=== PATIENT | male | born 1965 | race Caucasian/White ===

== ENCOUNTER 2016-12-11 15:27 | Emergency (ER) | payer BC ==
[2016-12-11 15:41] VITALS: BP 141/93
[2016-12-11] MEDS ORDERED: Albuterol 0.083% 2.5 MG/3 ML Neb Soln NEB ONE (15:59)
--- NOTE | 2016-12-11 16:40 | EDM.PDOC ---
ED HPI GI/ABDOMINAL - General Chief Complaint: Abdominal Pain Stated Complaint: UPPER ABDOMINAL PAIN Time Seen by Provider: 12/11/16 15:49 Source of Information: Reports: Patient History Limitations: Reports: No limitations - History of Present Illness INITIAL COMMENTS - FREE TEXT/NARRATIVE: The patient presents with right upper quadrant pain and right lower chest pain. This started about 1 week ago. It hurts to take a deep breath. It normally does not hurt until he is taking a deep breath. He has no shortness of breath with it. Food does not affect it. He has no fever or chills. He does have a slight posterior headache. He has no nausea or vomiting. He has no edema in his legs or pain in his legs. He had a chest cold about 3 weeks ago that went away last week. He has no history of heart disease. He has no history of DVT or PE. He went to see Belle Dumont in our clinic and she did some labs and an x- ray. She gave him some magnesium citrate to clean him out and he did go but he does not feel any better. He went to the clinic but they could not fit her in so they sent him over here. Timing/Duration: Reports: Week(s): (1) Location: [facility] Quality: Reports: other (sharp) Severity: moderate (when taking a deep breath only) Worsens with: Reports: other (taking a deep breath) Context: Denies: sick contact, bad/questionable food, out of country travel, recent surgery, recent trauma, lifting, activity/exercise Associated Symptoms: Reports: chest pain. Denies: groin pain, diarrhea, fever/ chills, loss of appetite, nausea/vomiting - Related Data Allergies/ADRs: Allergies Allergy/AdvReac Type Severity Reaction Status Date / Time venom-honey bee Allergy Swelling Verified 12/11/16 15:40 [bee venom (honey bee)] Home Meds: Home Meds . [No Known Home Meds] 12/11/16 [History] Past Medical History - Past Surgical History Musculoskeletal Surgical History: Reports: Other (see below) Other Musculoskeletal Surgeries/Procedures:: knee surgery Social & Family History - Tobacco Use Smoking Status *Q: Never Smoker Second Hand Smoke Exposure: No - Caffeine Use Caffeine Use: Reports: None - Recreational Drug Use Recreational Drug Use: No ED ROS GENERAL - Review of Systems Review Of Systems: See Below Constitutional: Reports: no symptoms HEENT: Reports: No symptoms Respiratory: Reports: No Symptoms Cardiovascular: Reports: Chest pain Endocrine: Reports: no symptoms GI/Abdominal: Reports: Abdominal pain (RUQ) : Reports: no symptoms Musculoskeletal: Reports: no symptoms Skin: Reports: no symptoms Neurological: Reports: No Symptoms ED EXAM, GI/ABD - Physical Exam Exam: See Below Exam Limited By: No limitations General Appearance: alert, no apparent distress Ears: normal external exam Nose: normal inspection Throat/Mouth: Normal inspection Head: atraumatic, normocephalic Neck: normal inspection Respiratory/Chest: no respiratory distress, wheezing (mild) Cardiovascular: regular rate, rhythm, no edema, no murmur GI/Abdominal: soft, non tender, no organomegaly Back Exam: normal inspection Extremities: normal inspection, other (Ecchymosis to both hips) Neurological: alert, oriented, no motor/sensory deficits EKG INTERPRETATION EKG Date: 12/11/16 Time: 16:10 Rhythm: NSR Rate (beats/min): 84 [place]: normal P-wave: present QRS: normal ST-T: normal QT: normal Course - Vital Signs Last Recorded V/S: Last Vital Signs Temp 98.6 F 12/11/16 15:36 Pulse 90 12/11/16 15:36 Resp 16 12/11/16 15:36 BP 141/93 H 12/11/16 15:36 Pulse Ox 98 12/11/16 16:09 - Orders/Labs/Meds Orders: Active Orders 24 hr Category Date Time Status Cardiac Monitoring [RC] . DIRECTED Care 12/11/16 15:58 Active EKG Documentation Completion [RC] STAT Care 12/11/16 15:58 Active RT Aerosol Therapy [RC] ASDIRECTED Care 12/11/16 15:59 Active Chest 2V [CR] Stat Exams 12/11/16 15:59 Taken Labs: Laboratory Tests 12/11/16 12/11/16 12/11/16 Range/Units 16:32 16:32 16:32 WBC 10.13 H (4.23-9.07) K/mm3 RBC 5.42 (4.63-6.08) M/mm3 Hgb 16.6 (13.7-17.5) gm/L Hct 48.2 (40.1-51.0) % MCV 88.9 (79.0-92.2) fl MCH 30.6 (25.7-32.2) pg MCHC 34.4 (32.2-35.5) g/dl RDW Std Deviation 40.3 (35.1-43.9) fL Plt Count 186 (163-337) K/mm3 MPV 10.7 (9.4-12.3) fl Neut % (Auto) 51.8 (34.0-67.9) % Lymph % (Auto) 38.1 (21.8-53.1) % [place] % (Auto) 8.8 (5.3-12.2) % Eos % (Auto) 0.8 (0.8-7.0) Baso % (Auto) 0.4 (0.1-1.2) % Neut # (Auto) 5.25 (1.78-5.38) K/mm3 Lymph # (Auto) 3.86 H (1.32-3.57) K/mm3 [place] # (Auto) 0.89 H (0.30-0.82) K/mm3 Eos # (Auto) 0.08 (0.04-0.54) K/mm3 Baso # (Auto) 0.04 (0.01-0.08) K/mm3 D-Dimer, Quantitative 0.29 (0.19-0.59) mg/L Sodium 142 (136-145) mEq/L Potassium 3.9 (3.5-5.1) mEq/L Chloride 105 (98-107) mEq/L Carbon Dioxide 29 (21-32) mEq/L Anion Gap 11.9 (5-15) BUN 16 (7-18) mg/dL Creatinine 1.0 (0.7-1.3) mg/dL Est Cr Clr Drug Dosing 82.63 mL/min Estimated GFR (MDRD) > 60 (>60) mL/min BUN/Creatinine Ratio 16.0 (14-18) Glucose 111 H (74-106) mg/dL Calcium 9.0 (8.5-10.1) mg/dL Total Bilirubin 0.9 (0.2-1.0) mg/dL AST 21 (15-37) U/L ALT 45 (16-63) U/L Alkaline Phosphatase 67 (46-116) U/L Troponin I < 0.017 (0.00-0.056) ng/mL Total Protein 7.8 (6.4-8.2) g/dl Albumin 4.1 (3.4-5.0) g/dl Globulin 3.7 gm/dL Albumin/Globulin Ratio 1.1 (1-2) Meds: Medications Discontinued Medications Generic Name Dose Route Start Last Admin Trade Name Justin PRN Reason Stop Dose Admin Albuterol 2.5 mg 12/11/16 15:59 12/11/16 16:07 Proventil Neb Soln NEB 12/11/16 16:00 2.5 mg ONETIME ONE Administration - Re-Assessments/Exams Free Text/Narrative Re-Assessment/Exam: 12/11/16 16:40 I ordered an EKG, CXR and labs. His EKG shows a NSR with nothing acute. His CXR looks good. 12/11/16 17:39 His WBC is slightly elevated at 10.13. His D-dimer was negative along with his troponin. His CMP was negative. I feel this is pleurisy. I will discharge him home on some antiinflammatories. Departure - Departure Time of Disposition: 17:40 Disposition: Home, Self-Care 01 Condition: good Clinical Impression: Pleurisy Referrals: Belle Moore PA [Physician [employer] Operator] - 1 Week (If you are not better) Forms: ED Department Discharge Additional Instructions: Take motrin or aleve for pain. Please return if you are worse. - My Orders Last 24 Hours: My Active Orders 12/11/16 15:58 Cardiac Monitoring [RC] . DIRECTED EKG Documentation Completion [RC] STAT 12/11/16 15:59 RT Aerosol Therapy [RC] ASDIRECTED Chest 2V [CR] Stat - Assessment/Plan Last 24 Hours: My Active Orders 12/11/16 15:58 Cardiac Monitoring [RC] . DIRECTED EKG Documentation Completion [RC] STAT 12/11/16 15:59 RT Aerosol Therapy [RC] ASDIRECTED Chest 2V [CR] Stat
--- NOTE | 2016-12-13 16:18 | CR ---
Chest: Two views of the chest were obtained. Comparison: No previous study. Heart size and mediastinum are normal. Lungs are clear. Bony structures are unremarkable. Impression: 1. Nothing acute is identified on two-view chest x-ray. Diagnostic code #1
== END 2016-12-11 17:49 | disposition home or self-care (01) ==
LOC: JD.ED 15:27
DX: R09.1 Pleurisy (principal); S70.02XA Contusion of left hip, initial encounter; S70.01XA Contusion of right hip, initial encounter; Z91.030 Bee allergy status; Z98.890 Other specified postprocedural states; X58.XXXA Exposure to other specified factors, initial encounter
CPT/HCPCS: 36415; 71020; 71020-26; 80053; 84484; 85025; 85379; 93005; 99284; 99284-25

== ENCOUNTER 2019-01-25 07:08 | Day surgery (SDC) | payer BC ==
[~2019-01-25 07:08] MED LIST: Lactated Ringers 1,000 ML IV SCH; Lidocaine 1%/Sod Bicarbonate in NS 8.4% 1 ML Syringe IDERM PRN; Sodium Chloride 0.9% 10 ML Syringe FLUSH PRN
[2019-01-25] MEDS ORDERED: Propofol 200 MG/20 ML SDV ONE ×2 (07:17→08:02)
[2019-01-25 08:44] VITALS: BP 106/82
--- NOTE | 2019-01-25 14:23 | OR ---
DATE OF OPERATION: 01/25/2019 SURGEON: Rey Liu MD PREOPERATIVE DIAGNOSIS: Colorectal cancer screening. POSTOPERATIVE DIAGNOSIS: 1. Colorectal cancer screening. 2. Diverticulosis. 3. Colon polyp. OPERATION PERFORMED: Screening colonoscopy and cold polypectomy x1. FINDINGS: He had a diminutive polyp in the sigmoid colon, which was easily removed with a single bite of a biopsy forceps. This mucosa appeared marginally abnormal at best, so I am not sure it is actually a polyp, may be a pseudopolyp. He also had some scattered diverticulosis concentrated in the sigmoid colon. The remainder of his exam was completely unremarkable. He had an excellent bowel prep. PATHOLOGY: Sigmoid colon polyp. COMPLICATIONS: None. ESTIMATED BLOOD LOSS: Minimal. ANESTHESIA: MAC. DISPOSITION: Stable at the end of the procedure. INDICATION: The patient is a 53-year-old male who never had a colonoscopy. He presented to my office for screening. The patient was offered screening colonoscopy per the standard of care. He was fully informed of the major risks, benefits, and alternatives. The risks include, but are not limited to perforation of the colon, bleeding, risks of anesthesia, and the possibility of further surgery. He gave informed consent. DESCRIPTION OF PROCEDURE: The patient was brought to the gastro suite and placed in the left lateral decubitus position. A digital rectal exam was performed. He was given monitored anesthesia. His digital rectal exam was unremarkable. I introduced the colonoscope into the rectum. I advanced the scope with copious lubrication with gentle forward pressure keeping the lumen in view at all times. I documented the cecum photographically. I slowly investigated the mucosa of the colon from the cecum back to the anus in an exam lasting 9 minutes. I identified a single polyp in the sigmoid colon. He had some sigmoid diverticulosis. The polyp was removed in its entirety with the cold biopsy forceps. As the exam was completed at 9 minutes, the scope was withdrawn. He was awakened from anesthesia and moved to recovery in stable condition. PLAN: If the pathology returns normal or hyperplastic, 10-year followup is warranted. If the polyp turns out to be an adenoma, then he will need a 5-year followup. My office will notify to that regard. MMODAL /[id number]
== END 2019-01-25 09:03 | disposition home or self-care (01) ==
LOC: JD.SDS 07:08
PROVIDERS: ATTEND Surgery
DX: Z12.11 Encounter for screening for malignant neoplasm of colon (principal); K63.5 Polyp of colon; K57.30 Diverticulosis of large intestine without perforation or abscess without bleeding; Z91.030 Bee allergy status
CPT/HCPCS: 00812; J2704; J7120

== ENCOUNTER 2021-03-29 22:17 | Emergency (ER) | payer BC ==
[2021-03-29 22:33] VITALS: BP 136/96; PULSE 73
[2021-03-29] MEDS ORDERED: Proparacaine 0.5% Ophth Soln 15 ML Bottle EYELF STA (23:03)
[2021-03-29] MEDS ORDERED: Fluorescein 1 MG Ophth Strip EYELF STA (23:03)
[2021-03-29] MEDS ORDERED: Erythromycin Base 0.5% Ophth Oint 1 GM Tube EYELF STA (23:19)
--- NOTE | 2021-03-29 23:25 | EDM.PDOC ---
ED HPI GENERAL MEDICAL PROBLEM - General Chief Complaint: Eye Problems Stated Complaint: FOB IN LEFT EYE Time Seen by Provider: 03/29/21 22:42 Source of Information: Reports: Patient, Family ( + daughter) History Limitations: Reports: No Limitations - History of Present Illness INITIAL COMMENTS - FREE TEXT/NARRATIVE: Mr. Mejia is a very pleasant 55-year-old gentleman who now presents the ED stating that he developed a foreign body sensation in his left eye around 21:00 tonight, after he brushed his hand through his hair while lying in bed. He tried flushing it with water in the shower, then under the kitchen sink, as well as with saline solution, but the foreign body sensation persists. He denies visual changes. No prior left eye injury. Here in the ED, the patient's initial BP is found to be slightly elevated at 136/96, otherwise, he is hemodynamically stable, afebrile, saturating 96% on room air. He appears to be slightly uncomfortable, but in no acute distress. Prior to 21:00 tonight, the patient denies having a recent fever, chills, sore throat, ear pain, nasal or sinus congestion, cough, dyspnea, chest pain, palpitations, nausea, vomiting, constipation, diarrhea, abdominal pain, urinary symptoms, recent weight gain or weight loss, recent bloody bowel movements or black bowel movements, recent joint aches, headaches, or rashes. I reviewed the PMHx/PSHx/SocHx, which was reviewed with the patient by the RN. The patient's PCP is Dr. Arnold Chavez. - Related Data Allergies Allergy/AdvReac Type Severity Reaction Status Date / Time venom-honey bee Allergy Severe Swelling Verified 03/29/21 22:33 [bee venom (honey bee)] Home Meds: Home Meds Losartan Potassium 25 mg PO DAILY 03/29/21 [History] Past Medical History HEENT History: Reports: None Cardiovascular History: Reports: Hypertension Other Cardiovascular History: chest pain Respiratory History: Reports: Other (See Below) Other Respiratory History: cough Gastrointestinal History: Reports: Other (See Below) Other Gastrointestinal History: RUQ pain Genitourinary History: Reports: None SIENE MAKER History: Reports: None Neurological History: Reports: None Psychiatric History: Reports: None Endocrine/Metabolic History: Reports: Obesity/BMI 30+ Hematologic History: Reports: None Immunologic History: Reports: None Oncologic (Cancer) History: Reports: None Dermatologic History: Reports: None - Infectious Disease History Infectious Disease History: Reports: MRSA - Past Surgical History Musculoskeletal Surgical History: Reports: Other (See Below) Other Musculoskeletal Surgeries/Procedures:: Knee Surgery Social & Family History - Tobacco Use Tobacco Use Status *Q: Never Tobacco User - Caffeine Use Caffeine Use: Reports: Coffee - Recreational Drug Use Recreational Drug Use: No ED ROS GENERAL - Review of Systems Review Of Systems: Comprehensive ROS is negative, except as noted in HPI. ED EXAM GENERAL W FULL EYE - Physical Exam Exam: See Below Exam Limited By: No Limitations General Appearance: Alert Eyelids: Bilateral: Normal Appearance Conjunctiva & Sclera: Right: Normal Appearance, Left: Injected Cornea Exam: Left: Corneal Abrasion (punctate, central cornea, seen with slit lamp only), Examined with Flourescein Extraocular Movements: Bilateral: Intact Pupils: Normal Accommodation Pupillary Size: Bilateral: 5 mm Pupillary Reaction: Bilateral: Brisk Anterior Chamber: Bilateral: Normal Appearance Course - Vital Signs Last Recorded V/S: Last Vital Signs Temp 35.9 C L 03/29/21 22:31 Pulse 73 03/29/21 22:31 Resp 16 03/29/21 22:31 BP 136/96 H 03/29/21 22:31 Pulse Ox 96 03/29/21 22:31 - Orders/Labs/Meds Meds: Medications Discontinued Medications Generic Name Dose Route Start Last Admin Trade Name Freq PRN Reason Stop Dose Admin Erythromycin 1 gm 03/29/21 23:19 03/29/21 23:24 Erythromycin Base 0.5% Ophth Oint 1 Gm Tube EYELF 03/29/21 23:20 1 applic ONETIME STA Administration Fluorescein Sodium 1 mg 03/29/21 23:03 03/29/21 23:24 Fluorescein 1 Mg Ophth Strip EYELF 03/29/21 23:04 1 mg ONETIME STA Administration Proparacaine HCl 1 ml 03/29/21 23:03 03/29/21 23:24 Proparacaine 0.5% Ophth Soln 15 Ml Bottle EYELF 03/29/21 23:04 1 ml ONETIME STA Administration - Re-Assessments/Exams Free Text/Narrative Re-Assessment/Exam: 03/29/21 23:20 As above, the patient developed a foreign body sensation in his left eye when he brushed his hand through his hair while in bed around 21:00 tonight. He flushed his eye copiously with water and saline solution, but still had a foreign body sensation. On examination under fluorescein with a Lawrence lamp, no foreign body or corneal abrasion was seen, however, under slit-lamp examination, there appears to be a very tiny punctate corneal ida, which is likely the cause of his discomfort. I suspect that the patient nicked his cornea with a foreign body, which he has since flushed out. For tonight's purposes, the patient's nurse will instill a ribbon of erythromycin ophthalmic ointment into his left eye, show him how to do it, and give him the tube. He can instill some ointment up to 6 times a day for the next few days. If he still has a foreign body sensation after a few days, I would like him to follow-up with an eye doctor. Departure - Departure Time of Disposition: 23:22 Disposition: Home, Self-Care 01 Condition: Good Clinical Impression: Left corneal abrasion - Discharge Information *PRESCRIPTION DRUG MONITORING PROGRAM REVIEWED*: Not Applicable *COPY OF PRESCRIPTION DRUG MONITORING REPORT IN PATIENT TAAWNDA: Not Applicable Instructions: Corneal Abrasion Referrals: Arnold Barroso MD [Primary Care Provider] - Forms: ED Department Discharge Additional Instructions: You were seen in the emergency room after developing the sensation of a foreign body in your left eye after you brush your hand through your hair tonight. On examination of your left eye with fluorescein under a Lawrence lamp, no foreign body or corneal injury was seen, however, under slit-lamp examination, a very tiny ida was seen in the center of your cornea. It is most likely that the foreign body nicked your cornea, but you subsequently flushed the foreign body out. Your nurse has instilled a ribbon of erythromycin ophthalmic ointment into your left eye, showed you how to do it, and gave you the tube. You may instill a 1 cm ribbon into your lower eyelid up to 6 times a day, for the next few days, to help soothe your eye. If you still have a foreign body sensation by 04/01/2021, please follow-up with an eye doctor on 04/02/2021, for reevaluation. If any other problems, please do not hesitate to return to the ER. Sepsis Event Note (ED) - Evaluation Sepsis Screening Result: No Definite Risk - Focused Exam Vital Signs: Vital Signs Temp Pulse Resp BP Pulse Ox 03/29/21 22:31 35.9 C L 73 16 136/96 H 96
== END 2021-03-29 23:35 | disposition home or self-care (01) ==
LOC: JD.ED 22:17
DX: S05.02XA Injury of conjunctiva and corneal abrasion without foreign body, left eye, initial encounter (principal); W22.8XXA Striking against or struck by other objects, initial encounter
CPT/HCPCS: 99283; A9270; 99282